=== PATIENT | female | born 1980 ===

== ENCOUNTER 2018-09-04 11:05 | Emergency (ER) | payer SELFPAY ==
[2018-09-04 11:15] VITALS: BP 95/62; PULSE 64; RESP 20; TEMP 98.4; O2SAT 96
[2018-09-04] MEDS ORDERED: Amoxicillin-Clav 875-125 mg Tab PO STA (11:37)
[2018-09-04] MEDS ORDERED: Amoxicillin-Clav 875-125 mg Tab PO ONE (11:58)
--- NOTE | 2018-09-04 12:03 | C.PDOC ---
History Of Present Illness 38 y/o female presents to the ER complaining of persistent pain to the left face and nose which has been present for the past 3 weeks. Patient states that she has associated nasal congestion and cough. Patient reports that she took Ibuprofen 800 mg without relief. She notes that she decided to come to the ER because her symptoms have become worse.Denies having fever, chills, headache, dizziness, CP, SOB, nausea, and vomiting. Time Seen by Provider: 09/04/18 11:27 Chief Complaint (Nursing): ENT Problem History Per: Patient History/Exam Limitations: no limitations Onset/Duration Of Symptoms: Days Current Symptoms Are (Timing): Still Present Severity: Moderate Past Medical History Reviewed: Historical Data, Nursing Documentation, Vital Signs Vital Signs: Last Vital Signs Temp 98.4 F 09/04/18 11:09 Pulse 64 09/04/18 11:09 Resp 20 09/04/18 11:09 BP 95/62 L 09/04/18 11:09 Pulse Ox 96 09/04/18 11:09 - Medical History PMH: Arthritis (left shoulder), Asthma, Hypercholesterolemia, Hyperlipidemia Denies: HIV, Chronic Kidney Disease Other Surgeries: Hx of surgeries Family History: States: No Known Family Hx - Social History Hx Alcohol Use: Yes Hx Substance Use: No - Immunization History Hx Tetanus Toxoid Vaccination: No Hx Influenza Vaccination: No Hx Pneumococcal Vaccination: No Review Of Systems Except As Marked, All Systems Reviewed And Found Negative. Constitutional: Negative for: Fever, Chills ENT: Positive for: Nose Congestion Cardiovascular: Negative for: Chest Pain Respiratory: Positive for: Cough. Negative for: Shortness of Breath Musculoskeletal: Positive for: Other (left side facial pain) Physical Exam - Physical Exam Appears: Non-toxic, No Acute Distress Skin: Normal Color, Warm, Dry Head: Atraumatic, Normacephalic, Tenderness (left maxillary sinus tenderness) Eye(s): bilateral: Normal Inspection, PERRL, EOMI Ear(s): Bilateral: Normal Nose: Normal Oral Mucosa: Moist Throat: Normal, No Erythema, No Exudate Neck: Normal ROM, Supple Chest: Symmetrical Cardiovascular: Rhythm Regular Respiratory: Normal Breath Sounds, No Rales, No Rhonchi, No Wheezing Extremity: Normal ROM, No Tenderness, No Swelling Neurological/Psych: Oriented x3, Normal Speech Gait: Steady ED Course And Treatment O2 Sat by Pulse Oximetry: 96 (RA) Pulse Ox Interpretation: Normal Medical Decision Making Medical Decision Making: Plan: --Augmentin PO --Claritin PO --Toradol IM --Prednisone PO Disposition - Disposition Referrals: [facility] [Outside] Disposition: HOME/ ROUTINE Disposition Time: 12:29 Condition: GOOD Additional Instructions: Follow up with the ENT tomorrow as scheduled without fail. Return if worsened. 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 - Scribe Statement The provider has reviewed the documentation as recorded by the Karla Rosales Provider Attestation All medical record entries made by the Karla were at my direction and personally dictated by me. I have reviewed the chart and agree that the record accurately reflects my personal performance of the history, physical exam, medical decision making, and the department course for this patient. I have also personally directed, reviewed, and agree with the discharge instructions and disposition.
== END 2018-09-04 12:40 | disposition home or self-care (01) ==
LOC: C.ER 11:05
DX: J32.9 Chronic sinusitis, unspecified (principal); E78.00 Pure hypercholesterolemia, unspecified; E78.5 Hyperlipidemia, unspecified
CPT/HCPCS: 96372; 99283; J1885